=== PATIENT | male | born 1945 | race Caucasian/White ===

== ENCOUNTER 2018-10-29 07:50 | Inpatient (IN) ==
--- NOTE | 2018-10-14 15:35 | PAT Medication Instructions ---
Medication Instructions Date of Service October 14, 2018 Home Medications metoprolol succinate 1 tab PO DAILY aspirin 81 mg PO DAILY cholecalciferol (vitamin D3) 2,000 unit PO DAILY clopidogrel [Plavix] 75 mg PO DAILY gabapentin 2 cap PO TID naproxen sodium [Aleve] 220 mg PO Q8H PRN nitroglycerin 1 dose SUBLINGUAL UD PRN oxycodone 15 mg PO Q6H PRN ramipril 10 mg PO DAILY rosuvastatin 0.5 tab PO HS tamsulosin 0.4 mg PO HS Continue as directed nitroglycerin 1 dose SUBLINGUAL UD PRN (if needed) ASK your surgeon for instructions naproxen sodium [Aleve] 220 mg PO Q8H PRN ASK your prescriber and surgeon clopidogrel [Plavix] 75 mg PO DAILY DO NOT take the morning of surgery cholecalciferol (vitamin D3) 2,000 unit PO DAILY ramipril 10 mg PO DAILY Take morning of surgery With a small sip of water, OTHERWISE NOTHING TO EAT OR DRINK AFTER MIDNIGHT: metoprolol succinate 1 tab PO DAILY aspirin 81 mg PO DAILY gabapentin 2 cap PO TID oxycodone 15 mg PO Q6H PRN (okay to take up to 4 hours prior to surgery if needed) Take evening before surgery gabapentin 2 cap PO TID oxycodone 15 mg PO Q6H PRN (if needed) rosuvastatin 0.5 tab PO HS tamsulosin 0.4 mg PO HS Other Notes If you have any questions please call us at [phone] or [phone] or [phone] or [phone]
--- NOTE | 2018-10-15 14:37 | Anesthesiology Consultation ---
Date of Service October 15, 2018 Assessment & Plan (1) Encounter for pre-operative examination: Preoperative cardiology clearance 10/22/2018: "Feel patient will be intermediate risk for his surgery, not prohibitive. With a repeat relatively normal stress test in August 2018 I do not feel additional cardiovascular testing is warranted at this time. A postoperative EKG should be performed. His fluid status should be monitored carefully, avoid any volume overload." Chart Review Chart Review: Acceptable Risk for Surgery and Patient seen in Pre Admission Testing Teaching & Discussion Instructed NPO after midnight before surgery, except medications with 15 cc of water. Medication instructions provided according to the PAT guidelines. Plavix instructions per surgeon and prescriber. History Surgery Operation Date: 10/29/18 07:45 Proposed Procedures p L3-S1 Decompression and Fusion - Jaspreet Corona DO Height/Weight Height: 5 ft 6.5 in Weight: 93.5 kg Allergies Allergy/AdvReac Type Severity Reaction Status Date / Time No Known Allergies Allergy Verified 10/13/18 10:52 Medications Home Medications Medication Instructions Recorded Confirmed Last Taken metoprolol succinate 1 tab PO DAILY 08/27/18 10/13/18 Unknown aspirin 81 mg PO DAILY 10/13/18 10/13/18 Unknown cholecalciferol (vitamin D3) 2,000 unit PO DAILY 10/13/18 10/13/18 Unknown [Vitamin D3] clopidogrel [Plavix] 75 mg PO DAILY 10/13/18 10/13/18 Unknown gabapentin 2 cap PO TID 10/13/18 10/13/18 Unknown naproxen sodium [Aleve] 220 mg PO Q8H PRN 10/13/18 10/13/18 Unknown nitroglycerin 1 dose SUBLINGUAL UD PRN 10/13/18 10/13/18 Unknown oxycodone 15 mg PO Q6H PRN 10/13/18 10/13/18 Unknown ramipril 10 mg PO DAILY 10/13/18 10/13/18 Unknown rosuvastatin 0.5 tab PO HS 10/13/18 10/13/18 Unknown tamsulosin 0.4 mg PO HS 10/13/18 10/13/18 Unknown Past Medical History Medical History BPH (benign prostatic hyperplasia) (Acute) Chronic lower back pain (Acute) Fainting episodes (Acute) X2 about 1.5 years ago, spent 1 week inpatient and per patient no etiology ID'd. Heart attack (Acute) 20 YEARS AGO Hyperlipidemia (Acute) Hypertension (Acute) Lyme disease (Acute) Treated last year Neuropathy (Acute) BILATERAL FEET, RIGHT ARM Pacemaker (Acute) Initially implanted 15yrs ago for complete HB; replaced 7 yrs ago. [employer]. MOST RECENT CEHCK 07/2018. Anxiety CAD (coronary artery disease) S/P CABG 2014 Cardiomyopathy Echo 10/23/17 showed very reduced EF at 30-35%. Medication changes made, and stress echo 08/01/18 showed EF of 51%. Degenerative disc disease Depression H/O aortic valve disease S/P AVR 2014 done with CABG Hiatal hernia Osteoarthritis Past Family History Family History Mother Family history of diabetes mellitus Brother Family history of diabetes mellitus Past Surgical History Surgical History History of aortic valve replacement (Acute) [address]CTION WITH CABG AT [facility] History of cholecystectomy (Acute) History of inguinal hernia repair, bilateral (Acute) History of lumbar surgery (Acute) LUMBAR SURGERY X 2 History of umbilical hernia repair (Acute) Hx of CABG (Acute) 2013 -- X 2 VESSELS (ELLIOTT-LAD, SVG-OM) Hx of appendectomy (Acute) Fatty tumor AT CERVICAL SITE REMOVAL History of cardiac cath X 2 (LAST ONE 4 YEARS AGO) History of colonoscopy History of esophagogastroduodenoscopy (EGD) ESOPHAGEAL STRETCHING History of tooth extraction Trigger finger Past Anesthesia History No Hx of Anesthesia Complications and No Family Hx of Anesthesia Complications History of PONV No Motion Sickness Screening History of Motion Sickness: No Social History Smoking Status: Former smoker tobacco type: cigarettes Do You Dip or Chew Tobacco: No Smoking End Date: QUIT OVER 25 YEARS AGO Hx Alcohol Use: Yes Alcohol type: beer alcohol intake frequency: holidays/special occasions only Hx Substance Use: No Exercise / Class Metabolic Activity II 4-5 Yardwork/Stairs/Walk up hill (DENIES CP OR SOB WITH 1 FOS) Review of Systems Pt denies any recent chest pain, shortness of breath, palpitations, cough, fever or URI. Physical Exam Vital Signs BP: 106/65 P: 64bpm SPO2: 96% RA T: 98.4 F R: 16 ENMT Mouth: + dentures (upper) and + chipped teeth (one front upper); no dental restorations and no loose teeth Thyromental Distance: > or= 3.5 Finger Breadths (3.5) Mallampati Class: II Neck normal visual inspection; neck extension not limited Respiratory normal respiratory effort Auscultation: lungs clear to auscultation bilaterally Cardiovascular Rate/Rhythm: regular rate and regular rhythm Heart Sounds: no murmur Vessels: no carotid bruit Extremities: no edema Testing Electrocardiogram Date: 10/15/18 Findings: + NSR @ (61 with 1st degree AV block) and + LBBB Chest X-Ray Date: 10/15/18 FINDINGS: Note is made of median sternotomy wires, prosthetic cardiac valve and a dual lead right subclavian pacemaker. There are cholecystectomy clips. Lung volumes are normal. There is no pneumothorax or pleural effusion. There is borderline cardiomegaly without evidence for pulmonary edema. No consolidation is identified. IMPRESSION: No acute cardiopulmonary findings. Echocardiogram Date: 10/23/17 EF: 30-35% Compared to the prior study, there is mild change. Technically difficult due to poor acoustic windows. Poor endocardial definition of 2 or more continuous segments. Definitive enhancement agent was used to improve visualization. Left ventricle shows normal cavity size and wall thickness. Moderate to severely decreased ejection fraction of 30-35%. Unable to assess diastolic function due to RV pacing. Right ventricle cavity is mildly to moderately dilated. Grossly normal right ventricular systolic function. Pacer lead/ICD wire present in the ventricle. Normal left atrium size. Abnormal intra-atrial septum. Aneurysmal interatrial septum noted. Intra-atrial septum not well visualized. Right atrium is moderately dilated. Pacer/ICD lead is present in the right atrium. Mild tricuspid regurgitation. Mild pulmonary regurg. Pulmonary artery pressure could not be obtained. Aortic valve: There is a 22 mm Castaneda Intuity pericardial bioprosthetic valve present. There is no aortic insufficiency present. Prosthetic aortic valve function appears normal. Stress Test Date: 07/31/18 Type: nuclear Left ventricular perfusion is probably normal. However there is evidence of attenuation defect/artifact. Study quality is limited by bowel activity compromising the counts in the inferior wall. Most of it resolves with attenuation correction, suggesting artifactual in nature. There is a small sized defect of mild severity present in the apex saucedo consistent with apical thinning. Stress EKG is nondiagnostic secondary to paced rhythm. The patient reported chest discomfort during the stress test. Paradoxical septal motion. Calculated LVEF 51%. This is a low risk study. Cardiac Catheterization Date: 10/05/13 Mild systemic arterial hypertension. Normal resting right-sided pressures. Probably moderate aortic stenosis, based on pullback, nonsimultaneous AL LV pre ssure tracings. Severe three-vessel coronary artery disease. Mild to moderate left ventricular systolic dysfunction with wall motion abnormalities as above. Other Testing Pacemaker check 07/15/2018 [employer], implanted 10/08/2008 Mode: DDDR Percent pacing: RV 96% Encounter summary: Normal device function. Increased RV output from 2-2.4 to testing. 3 years battery. 1 VHR for NSVT 04/18 170 bpm for 10 beats. Follow- up in office 6 months. Laboratory Results 10/15/18 14:44 10/15/18 14:44 Blood Type A Positive 10/15/18 14:44 Antibody Screen NEGATIVE 10/15/18 14:44 PT 10.9 Seconds (9.0-12.0) 10/15/18 14:44 INR 1.1 (0.9-1.1) 10/15/18 14:44 APTT 25.8 Seconds (21.0-31.0) 10/15/18 14:44 Urine Color Yellow 10/15/18 14:44 Urine Appearance Clear (Clear) 10/15/18 14:44 Urine pH 5.0 (4.5-7.5) 10/15/18 14:44 Ur Specific [place] 1.019 (1.000-1.030) 10/15/18 14:44 Urine Protein Negative (Negative) 10/15/18 14:44 Urine Glucose (UA) Negative (Negative) 10/15/18 14:44 Urine Ketones Negative (Negative) 10/15/18 14:44 Urine Nitrite Negative (Negative) 10/15/18 14:44 Ur Leukocyte Esterase Negative (Negative) 10/15/18 14:44
[2018-10-15 15:23] LABS: Basophils # (auto) 0.03 K/uL (0-0.2); Basophils % (auto) 0.4 %; Eosinophils # (auto) 0.54 K/uL (0-0.5); Eosinophils % (auto) 7.7 %; Hematocrit (blood only) 41.2 % (42-52); Hemoglobin 13.7 g/dL (14.0-18.0); Immature Granulocytes # (auto) 0.02 K/uL (0.00-0.02); Immature Granulocytes % (auto) 0.3 %; Lymphocytes # (auto) 1.86 K/uL (1.2-3.4); Lymphocytes % (auto) 26.5 %; Mean Corpuscular Hgb Conc 33.3 g/dL (32-36); Mean Corpuscular Volume 88.8 fL (80-100); Mean Platelet Volume 9.4 fL (7.4-10.4); Monocytes # (auto) 0.86 K/uL (0.11-0.59); Monocytes % (auto) 12.3 %; Neutrophils % (auto) 52.8 %; Platelet Count 148 K/uL (130-400); RDW Coefficient of Variation 13.6 % (11.5-14.5); RDW Standard Deviation 44.2 fL (36.4-46.3); Red Blood Count 4.64 M/uL (4.7-6.1); White Blood Count 7.01 K/uL (4.8-10.8)
[2018-10-15 15:31] LABS: BUN Creatinine Ratio 15.7 (10-20); Creatinine Clr Calc Pharmacy 67.3 ml/min; Est GFR (African American) 81.6; Est GFR (Non-African American) 70.4; Potassium 4.8 mmol/L (3.5-5.1)
[2018-10-15 15:33] LABS: Appearance Urine Clear (Clear); Bilirubin Urine Negative (Negative); Blood Urine Negative (Negative); Color Urine Yellow; Glucose Urine UA Negative (Negative); Ketones Urine Negative (Negative); Leukocyte Esterase Urine Negative (Negative); Nitrite Urine Negative (Negative); Protein Urine Negative (Negative); Specific Gravity Urine 1.019 (1.000-1.030); Urobilinogen Urine Negative (Negative)
[2018-10-15 15:35] LABS: INR 1.1 (0.9-1.1); Partial Thromboplastin Time 25.8 Seconds (21.0-31.0); Prothrombin Time 10.9 Seconds (9.0-12.0)
--- NOTE | 2018-10-15 15:42 | XRay Report ---
XR chest Pre-admission PA/Lat CLINICAL HISTORY: Preoperative evaluation. COMPARISON STUDY: No previous studies for comparison. FINDINGS: Note is made of median sternotomy wires, prosthetic cardiac valve and a dual lead right sub clavian pacemaker. There are cholecystectomy clips. Lung volumes are normal. There is no pneumothorax or pleural effusion. There is borderline cardiomegaly without evidence for pulmonary edema. No conso lidation is identified. IMPRESSION: No acute cardiopulmonary findings. Electronically signed by: Marbin Pelaez M.D. 10/15/2018 3:41 PM
[~2018-10-29 07:50] MED LIST: ACETAMINOPHEN 500 MG TAB PO SCH; CEFAZOLIN 2000MG 2,000 MG/15 ML SYR IV SCH; CeleBREX 200 MG CAP PO SCH; GABAPENTIN 300 MG PO SCH; HYDROmorphone INJ 2 MG/ML SYR/VIAL ONE; LR 15ML/HR IV SCH; MIDAZOLAM HCL 1 MG/ML 2ML VIAL ONE; fentaNYL citrate 100 MCG/2 ML VIAL ONE
--- NOTE | 2018-10-29 09:41 | History & Physical Bridge Note ---
Date of Service October 29, 2018 History & Physical Bridge Note I have examined the patient, reviewed the History & Physical and in the interval since the performance of the History & Physical I have noted the following changes of clinical significance: no changes noted
--- NOTE | 2018-10-29 09:42 | History & Physical Report ---
Date of Service October 29, 2018 Assessment & Plan (1) Spinal stenosis, lumbar region with neurogenic claudication: Lumbar decompression and fusion L3-S1 Present on Admission?: Yes History of Present Illness Chief Complaint: Back and bilateral leg pain Primary Care Provider: Nany Alcantar MD This is a 73-year-old male who presents with chronic persistent back and bilateral leg pain. After failing extensive course of nonoperative care he is here for surgical intervention. Allergies Allergy/AdvReac Type Severity Reaction Status Date / Time No Known Allergies Allergy Verified 10/29/18 08:27 Home Medications Home Medications Medication Instructions Recorded Confirmed Type metoprolol succinate 1 tab PO DAILY 08/27/18 10/29/18 History aspirin 81 mg PO DAILY 10/13/18 10/29/18 History cholecalciferol (vitamin D3) 2,000 unit PO DAILY 10/13/18 10/29/18 History [Vitamin D3] clopidogrel [Plavix] 75 mg PO DAILY 10/13/18 10/29/18 History gabapentin 2 cap PO TID 10/13/18 10/29/18 History naproxen sodium [Aleve] 220 mg PO Q8H PRN 10/13/18 10/29/18 History nitroglycerin 1 dose SUBLINGUAL UD PRN 10/13/18 10/29/18 History oxycodone 15 mg PO Q6H PRN 10/13/18 10/29/18 History ramipril 10 mg PO DAILY 10/13/18 10/29/18 History rosuvastatin 0.5 tab PO HS 10/13/18 10/29/18 History tamsulosin 0.4 mg PO HS 10/13/18 10/29/18 History Past Med/Surg History Family History Mother Family history of diabetes mellitus Brother Family history of diabetes mellitus Social History Preferred Language: Slovak Communication Ability: Effective Cytopathologist Required: No Beliefs That Will Affect Care: None Current Living Situation: Spouse Other Information That Helps Us Care for You: No Feels Safe at Home: Yes Safety Concerns: Feels Safe At This Time Smoking Status: Former smoker Tobacco Type: cigarettes Do You Dip or Chew Tobacco: No Smoking End Date: QUIT OVER 25 YEARS AGO Second Hand Exposure: No Tobacco Cessation Education Requested by Patient: No Hx Alcohol Use: Yes Alcohol type: beer Hx Substance Use: No Physical Exam Vital Signs (Past 24 Hours): Last Vital Signs Temp 36.8 C 10/29/18 08:39 Pulse 72 10/29/18 08:39 Resp 20 10/29/18 08:39 BP 156/89 H 10/29/18 08:39 Pulse Ox 97 10/29/18 08:39
[2018-10-29] MEDS ORDERED: HYDROmorphone INJ 2 MG/ML SYR/VIAL ONE ×2 (10:13→13:04)
[2018-10-29] MEDS ORDERED: PROPOFOL IV EMULSION 10 MG/ML 100 ML VIAL IV ONE (10:13)
[2018-10-29] MEDS ORDERED: BACITRACIN INJ 50,000 UNIT VIAL ONE (10:16)
[2018-10-29] MEDS ORDERED: BUPIVACAINE/EPINEPHRINE 0.5% MPF 1:200,000 30 ML VIAL ONE (10:16)
[2018-10-29] MEDS ORDERED: LABETALOL HCL IV 5 MG/ML 20ML IV PRN (10:21)
[2018-10-29] MEDS ORDERED: ONDANSETRON INJ 2 MG/ML 2 ML VIAL IV PRN ×2 (10:21→15:37)
[2018-10-29] MEDS ORDERED: ATROPINE SULFATE 0.1 MG/ML 10ML SYR IV PRN (10:21)
[2018-10-29] MEDS ORDERED: fentaNYL citrate 100 MCG/2 ML VIAL ONE ×3 (10:38→12:21)
[2018-10-29] MEDS ORDERED: PROPOFOL IV EMULSION 10 MG/ML 20 ML VIAL IV ONE (11:04)
[2018-10-29] MEDS ORDERED: LIDOCAINE HCL 2% 2 ML VIAL/AMP(20MG/ML) INFIL ONE (11:04)
[2018-10-29] MEDS ORDERED: ROCURONIUM BROMIDE 10 MG/ML 5 ML VIAL ONE (11:04)
[2018-10-29] MEDS ORDERED: NEOSTIGMINE METHYLSULFATE 1 MG/ML 10ML VIAL ONE (11:04)
[2018-10-29] MEDS ORDERED: GLYCOPYRROLATE 0.2 MG/ML VIAL ONE (11:04)
[2018-10-29] MEDS ORDERED: DEXAMETHASONE SOD INJ 4 MG/ML VIAL ONE (11:04)
[2018-10-29] MEDS ORDERED: ONDANSETRON INJ 2 MG/ML 2 ML VIAL ONE ×2 (11:04→13:07)
[2018-10-29] MEDS ORDERED: FLOSEAL HEMOSTATIC MATRIX 10ML TOP ONE ×3 (11:16→11:20)
[2018-10-29] MEDS ORDERED: ALBUMIN HUMAN 5% 12.5 GM/250 ML VIAL IV ONE (12:14)
--- NOTE | 2018-10-29 13:01 | Operative Report ---
Post Operative Report Pre & Post Diagnosis Operation Date: 10/29/18 09:35 Pre-Op Diagnosis: Spinal stenosis, lumbar region with neurogenic claudication L3-S1 Post-Op Diagnosis: Spinal stenosis, lumbar region with neurogenic claudication L3-S1 Procedure Operation Date: 10/29/18 09:35 Actual Procedures #1 lumbar decompression medial facetectomies foraminotomies L2-3 L3-4 L4-5. #2 posterior spinal fusion L3-4 L4-5 L5-S1. #3 please posterior segmental instrumentation using globus L3-4 L4-5 L5-S1. #4 interbody fusion L4-5 per #5 placement of peek cage 11 x 26 mm L4-5. #6 placement of local autograft in the posterior lateral gutters per #7 placement Feese collagen sponge, master graft in the posterior lateral gutters and ostial amp in the interbody space. Surgeon Jaspreet Corona, Acquisition Marketing Coordinator Monserrat Moreno Estimated Blood Loss 575 Findings See Below Patient is 5 foot 6 and 97 kg with a BMI of 33. Patient's body habitus and excessive weight that had significant technical difficulty to the procedure requiring extended Kerrisons and retractors. This added at least an increase of 50% of time to the procedure not normally anticipated. Specimens None Indications This is a 73-year-old male who presents with significant multilevel spinal stenosis. Failing extensive course of nonoperative care he like to undergo the above-mentioned procedure. Description of Procedure Patient was met with preoperatively case discussed all questions addressed. The patient was taken back to the operative suite underwent intubation and placed in a prone position on the Hill table on top of the Dylan frame. All bony prominences were well-padded eyes inspected to ensure no external pressure placed upon but this point the lumbar spine was prepped and draped in normal sterile fashion. Sharp dissection with the assistance of Bovie cautery was performed down to and exposing the lamina and transverse processes of L3-L4-L5 and sacral ala bilaterally. From a calcified fashion complete laminectomy of L4 L3 and partial laminectomy of L2 was performed including bilateral medial facetectomies and foraminotomies addressing severe stenosis. Pedicle screws were then placed in L3-L4-L5 and S1 levels bilaterally with assistance of fluoroscopy. Intraoperative neuro monitoring was utilized throughout the procedure and screws were tested and determined to be an appropriate placement. Spinal cord monitoring was normal throughout the entire procedure. Proper sized rods were then placed bilaterally and believe transforaminal approach and left complete discectomy until 4 5 was performed and provides curetted to subcortical bleeding bone and a 11 x 26 mm peek cage filled with osteo-amp bone graft tapped in position. Of note we also used approximate 10 cc of bone marrow aspirate taken by way of a transpedicular protein in the interbody graft and posterior gutters. Rods were then compressed locked in final position bilaterally. The transverse processes of L3-L4-L5 and sacral ala bur to subcortical bleeding bone. Infuse collagen sponge mass graft local autograft placed in the posterior lateral gutters. 15 round FLAVIO drain inserted. The incision was then closed with 1 Vicryl in the fascia 2-0 Vicryl subcutaneously and 4 Monocryl for final skin closure. Steri-Strip sterile dressings placed. Patient will continue to PACU stable condition. Please note Monserrat Moreno present at the entire procedure involved in patient positioning complex portions and final skin closure. I attest to the content of the Intraoperative Record and any orders documented therein. Any exceptions are noted below.
[2018-10-29] MEDS ORDERED: METOCLOPRAMIDE HCL INJ 5 MG/ML 2 ML VIAL ONE ×2 (13:07→13:08)
[2018-10-29] MEDS ORDERED: PHENYLEPHRINE 100MCG/ML 5ML SYR ONE (13:08)
[2018-10-29] MEDS ORDERED: ePHEDrine sulfate 50 MG/ML SYR ONE (13:08)
[2018-10-29] MEDS ORDERED: KETOROLAC 30 MG/ML VIAL ONE (13:08)
[2018-10-29] MEDS: HYDROmorphone INJ 1 MG/ML SYRINGE IV PRN ×9 (13:46→14:40)
--- NOTE | 2018-10-29 13:47 | Fluoroscopy Report ---
FL lumbar spine 2-3V CLINICAL HISTORY: L3-S1 DECOMPRESSION AND FUSION COMPARISON STUDY: CT lumbar myelogram August 27, 2018. FLUOROSCOPY TIME: 25 seconds. FLUOROSCOPIC IMAGES: 2. FINDINGS: These images demonstrate L3-S1 bilateral pedicle screw fusion with posterior decompression. There is a discectomy with interbody spacer placement at the L4-L5 level. Hardware is intact. IMPRESSION: Fluoroscopic images demonstrating L4-L5 discectomy and L3-S1 bilateral pedicle screw fus ion with posterior decompression. Electronically signed by: Marbin Pelaez M.D. 10/29/2018 1:46 PM
--- NOTE | 2018-10-29 14:33 | Anesthesiology Progress Note ---
Date of Service October 29, 2018 Anesthesia Post Procedure Vital Signs Vital Signs: Temp Pulse Pulse Resp BP Pulse Ox 10/29/18 13:21 36.6 C 83 16 183/90 H 97 10/29/18 08:39 36.8 C 72 20 156/89 H 97 Pain Intensity Lower Back: Pain Intensity: 8 Transfer of Care Handoff Completed per policy Notes Mental Status: alert / awake / arousable Patient Amnestic to Procedure: Yes Nausea / Vomiting: adequately controlled Pain: adequately controlled Airway Patency, RR, SpO2: stable & adequate BP & HR: stable & adequate Hydration State: stable & adequate Anesthetic Complications: no major complications apparent
[2018-10-29] MEDS ORDERED: HYDROmorphone INJ 0.5 MG/0.5 ML SYR IV STA (15:36)
[2018-10-29] MEDS ORDERED: METOCLOPRAMIDE HCL INJ 5 MG/ML 2 ML VIAL IV PRN (15:37)
[2018-10-29] MEDS ORDERED: ACETAMINOPHEN 500 MG TAB PO PRN (15:37)
[2018-10-29] MEDS ORDERED: ACETAMINOPHEN 1,000 MG/100 ML VIAL IV PRN (15:37)
[2018-10-29] MEDS ORDERED: ONDANSETRON 4 MG TAB PO PRN (15:37)
[2018-10-29] MEDS ORDERED: NITROGLYCERIN SL 0.4 MG/TAB TAB SL PRN (15:37)
[2018-10-29] MEDS ORDERED: PROMETHAZINE HCL 12.5 MG in SODIUM CHLORIDE 0.9% 50 ML IV PRN (15:37)
[2018-10-29] MEDS ORDERED: DO NOT ADMINISTER FLU VACCINE PRN (15:37)
[2018-10-29] MEDS ORDERED: ALUMINUM/MAGNESIUM SUSP 30 ML UDC PO PRN (15:37)
[2018-10-29] MEDS ORDERED: BISACODYL 10 MG SUPP PR PRN (15:37)
[2018-10-29] MEDS ORDERED: DO NOT ADMINISTER PNEUMOCOCCAL VACCINE PRN (15:37)
[2018-10-29] MEDS ORDERED: FAMOTIDINE 20 MG TAB PO PRN (15:37)
[2018-10-29] MEDS ORDERED: SOD PHOSPHATE/SOD BIPHOSPHATE ENEMA 132 ML BTL PR PRN (15:37)
[2018-10-29] MEDS ORDERED: LORazepam 0.5 MG/1 ML VIAL IV PRN (15:37)
[2018-10-29] MEDS: HYDROmorphone INJ 0.5 MG/0.5 ML SYR IV PRN ×2 (16:46→22:57)
[2018-10-29] MEDS: CEFAZOLIN 2000MG 2,000 MG/15 ML SYR IV SCH (16:47)
[2018-10-29] MEDS: LACTATED RINGER'S 1,000 ML IV SCH ×2 (16:52→22:41)
--- NOTE | 2018-10-29 17:07 | Hospitalist Consultation ---
Date of Consultation October 29, 2018 Assessment & Plan (1) Spinal stenosis, lumbar region with neurogenic claudication: - POD#0 L3-S1 decompression fusion by Dr. Corona - activity and wound care orders as per ortho - pain control with bowel regimen - PT/OT - monitor H/H for acute blood loss anemia and transfuse blood products PRN - EBL 575 cc (2) CAD (coronary artery disease): -History of CABG x2 2013 -Received preoperative cardiac clearance -Stable, no reports of chest pain -Continue aspirin, statin, beta-padmini, ED inhibitor (3) HTN (hypertension): -BP controlled, continue metoprolol and ED inhibitor (4) Ischemic cardiomyopathy: -Echo 10/23/17 showed educed EF at 30-35%; stress echo 08/01/18 showed EF of 51% -Appears euvolemic, does not require routine diuretics (5) Pacemaker: (6) Complete heart block: -No acute issues (7) DVT prophylaxis: -Teds/SCDs as per spine orthopedics Thank you for this consultation. We will follow the patient with you during their hospital stay. You can reach a member of the [facility] 21/01 via pager @ [phone]. Supervising Physician Co-Signing Physician Notes Patient is a 73-year-old male with history of coronary artery disease status post CABG, ischemic cardiomyopathy and other medical problems who underwent lumbar decompression and fusion by Dr. Corona was seen and examined postop. Postoperatively he complains of low back pain with movement, radiates down both legs, associated with some numbness and tingling in feet. Denies any chest pain, shortness of breath, dizziness, nausea, abdominal pain. On exam patient is moderately built and nourished, normocephalic atraumatic, lungs are clear to auscultation, S1-S2, no murmur, pacemaker on the right side of the chest, abdomen soft nontender, back--surgical site in dressing. No pedal edema, grossly no focal neurological deficits. Spinal stenosis status post lumbar decompression fusion POD#0 Monitor for postop anemia Transfuse PRBC as needed Bowel regimen to prevent constipation Activity, DVT prophylaxis, pain control as per primary team PT OT Coronary artery disease Continue home medications including aspirin, statin, beta-padmini, ED I personally reviewed the record. Patient is interviewed and examined at bedside. Patient's care is coordinated with Jackelyn Cho BURR GRINDER. Please refer to the documentation above for details of patient's presentation and for discussion of other issues. History of Present Illness Reason for Consultation: Postop medical management Requesting Physician: Dr. Corona Attending Physician: Dr. Stevens History of Present Illness 73-year-old male who is status post lumbar decompression fusion L3-S1 today by Dr. Corona. Postoperatively the patient is doing well. He reports he is having low back pain with radiation to both legs however this was present prior to surgery and is currently improved. He also has some mild tingling to the bilateral lower extremities which was present preoperatively as well. He denies chest pain shortness of breath. No lightheadedness or dizziness. He denies nausea and abdominal pain. Booth catheter is in place draining clear yellow urine. Allergies Allergy/AdvReac Type Severity Reaction Status Date / Time No Known Allergies Allergy Verified 10/29/18 08:27 Home Medications Home Medications Medication Instructions Recorded Confirmed Type metoprolol succinate 1 tab PO DAILY 08/27/18 10/29/18 History aspirin 81 mg PO DAILY 10/13/18 10/29/18 History cholecalciferol (vitamin D3) 2,000 unit PO DAILY 10/13/18 10/29/18 History [Vitamin D3] gabapentin 2 cap PO TID 10/13/18 10/29/18 History naproxen sodium [Aleve] 220 mg PO Q8H PRN 10/13/18 10/29/18 History nitroglycerin 1 dose SUBLINGUAL UD PRN 10/13/18 10/29/18 History oxycodone 15 mg PO Q6H PRN 10/13/18 10/29/18 History ramipril 10 mg PO DAILY 10/13/18 10/29/18 History rosuvastatin 0.5 tab PO HS 10/13/18 10/29/18 History tamsulosin 0.4 mg PO HS 10/13/18 10/29/18 History Patient History Medical History Depression (Chronic) Pacemaker (Chronic) Complete heart block (Chronic) LBBB (left bundle branch block) (Chronic) BPH (benign prostatic hyperplasia) (Chronic) Ischemic cardiomyopathy (Chronic) Echo 10/23/17 showed very reduced EF at 30-35%. Medication changes made, and stress echo 08/01/18 showed EF of 51%. HTN (hypertension) (Chronic) CAD (coronary artery disease) (Chronic) Surgical History H/O umbilical hernia repair (Chronic) S/P trigger finger release (Chronic) H/O inguinal hernia repair (Chronic) History of back surgery (Chronic) Hx of cholecystectomy (Chronic) History of appendectomy (Chronic) History of aortic valve replacement with bioprosthetic valve (Chronic) S/P CABG x 2 (Chronic) 2013 Family History Mother Family history of diabetes mellitus Brother Family history of diabetes mellitus Social History Preferred Language: Tristanian Communication Ability: Effective [employer] Member Required: No Beliefs That Will Affect Care: None Current Living Situation: Spouse Other Information That Helps Us Care for You: No Feels Safe at Home: Yes Safety Concerns: Feels Safe At This Time Smoking Status: Former smoker Tobacco Type: cigarettes Do You Dip or Chew Tobacco: No Smoking End Date: QUIT OVER 25 YEARS AGO Second Hand Exposure: No Tobacco Cessation Education Requested by Patient: No Hx Alcohol Use: Yes Alcohol type: beer Hx Substance Use: No Review of Systems Review of Systems: ROS per HPI, all other systems reviewed and negative Physical Exam Constitutional: WD/WN, vitals as above Eyes: PERRL, conjunctivae normal, anicteric sclerae ENMT: Ears: no external ear abnormality Nose: no external nose abnormality Mouth: + dry oral mucous membranes Respiratory: normal respiratory effort, lungs clear to auscultation Cardiovascular: Rate/Rhythm: regular rate and regular rhythm Vessels: normal peripheral pulses Extremities: no edema Chest (Breasts): Chest: + pacemaker (Right chest) Gastrointestinal (Abdomen): normal bowel sounds, soft, nontender, no hepatosplenomegaly Musculoskeletal: no cyanosis or clubbing, extremities motor strength 5/5 S/P back surgery, pedal pushes and pulls strong bilaterally, drain in place draining bloody drainage Skin: no rashes, warm and dry Neurologic: PERRL, EOMI, accommodation nl, no face palsy, no dysarthria Psychiatric: A+Ox3, euthymic affect Results & Data Vital Signs (Past 12 Hours) Vital Signs Temp Pulse Pulse Pulse Resp BP BP 10/29/18 16:21 36.1 C L 69 18 147/73 H 10/29/18 15:48 36.4 C L 66 18 10/29/18 15:20 36.6 C 72 16 10/29/18 15:06 81 18 133/58 L 10/29/18 15:05 70 14 10/29/18 15:01 73 15 129/54 L 10/29/18 15:00 84 24 10/29/18 14:56 67 13 130/52 L 10/29/18 14:55 73 13 10/29/18 14:51 78 15 129/56 L 10/29/18 14:50 71 14 10/29/18 14:46 67 14 138/53 L 10/29/18 14:45 68 14 10/29/18 14:41 75 15 137/60 10/29/18 14:40 77 16 10/29/18 14:36 69 14 135/58 L 10/29/18 14:35 68 14 10/29/18 14:31 79 16 134/58 L 10/29/18 14:30 76 17 10/29/18 14:26 78 17 131/50 L 10/29/18 14:25 72 15 10/29/18 14:21 78 16 142/73 H 10/29/18 14:20 80 16 10/29/18 14:16 74 16 171/91 H 10/29/18 14:15 76 15 10/29/18 14:13 75 17 173/102 H 10/29/18 14:11 70 21 163/115 H 10/29/18 14:10 78 16 10/29/18 14:06 64 14 162/65 H 10/29/18 14:05 67 20 10/29/18 14:01 69 14 159/71 H 10/29/18 14:00 72 14 10/29/18 13:56 76 18 160/112 H 10/29/18 13:55 71 15 10/29/18 13:51 78 15 164/83 H 10/29/18 13:50 72 17 10/29/18 13:46 73 14 173/82 H 10/29/18 13:45 78 12 10/29/18 13:41 84 15 182/89 H 10/29/18 13:40 80 17 10/29/18 13:36 79 14 191/80 H 10/29/18 13:35 80 17 10/29/18 13:32 83 18 180/83 H 10/29/18 13:31 83 21 183/83 H 10/29/18 13:30 85 18 10/29/18 13:26 84 15 165/79 H 10/29/18 13:25 83 12 10/29/18 13:22 83 14 183/90 H 10/29/18 13:21 36.6 C 83 83 12 10/29/18 08:39 36.8 C 72 20 BP Pulse Ox 10/29/18 16:21 94 10/29/18 15:48 147/70 H 93 10/29/18 15:20 155/73 H 95 10/29/18 15:06 94 10/29/18 15:05 10/29/18 15:01 95 10/29/18 15:00 93 10/29/18 14:56 94 10/29/18 14:55 93 10/29/18 14:51 94 10/29/18 14:50 10/29/18 14:46 93 10/29/18 14:45 94 10/29/18 14:41 95 10/29/18 14:40 93 10/29/18 14:36 94 10/29/18 14:35 10/29/18 14:31 95 10/29/18 14:30 10/29/18 14:26 95 10/29/18 14:25 92 10/29/18 14:21 97 10/29/18 14:20 96 10/29/18 14:16 95 10/29/18 14:15 96 10/29/18 14:13 94 10/29/18 14:11 96 10/29/18 14:10 97 10/29/18 14:06 97 10/29/18 14:05 97 10/29/18 14:01 97 10/29/18 14:00 97 10/29/18 13:56 97 10/29/18 13:55 96 10/29/18 13:51 96 10/29/18 13:50 97 10/29/18 13:46 98 10/29/18 13:45 98 10/29/18 13:41 99 10/29/18 13:40 99 05/01/19 13:36 98 10/29/18 13:35 98 10/29/18 13:32 97 10/29/18 13:31 98 10/29/18 13:30 98 10/29/18 13:26 97 10/29/18 13:25 97 10/29/18 13:22 97 10/29/18 13:21 183/90 H 98 10/29/18 08:39 156/89 H 97
[2018-10-29] MEDS: GABAPENTIN 400 MG CAP PO SCH ×2 (18:17→21:33)
[2018-10-29] MEDS: METOPROLOL SUCC 50MG EXT REL TAB PO SCH (18:18)
[2018-10-29] MEDS: OXYCODONE HCL IR 5 MG TAB (IMMEDIATE RELEASE) PO PRN ×2 (18:25→21:36)
[2018-10-29] MEDS ORDERED: DOCUSATE SODIUM/SENNA 50/8.6MG TAB PO SCH (21:00)
[2018-10-29] MEDS: TAMSULOSIN HCL 0.4 MG CAP PO SCH (21:34)
[2018-10-29] MEDS: ROSUVASTATIN CALCIUM 5 MG TAB PO SCH (21:34)
[2018-10-30] MEDS: CEFAZOLIN 2000MG 2,000 MG/15 ML SYR IV SCH (01:33)
[2018-10-30] MEDS: OXYCODONE HCL IR 5 MG TAB (IMMEDIATE RELEASE) PO PRN ×3 (01:39→16:41)
[2018-10-30] MEDS: POLYETHYLENE (MIRALAX) 17 GM PACK PO SCH ×4 (05:10→23:22)
[2018-10-30] MEDS: TRAMADOL HCL 50 MG TABLET PO PRN ×3 (05:10→17:28)
[2018-10-30] MEDS: LACTATED RINGER'S 1,000 ML IV SCH (05:54)
[2018-10-30 07:15] LABS: Basophils # (auto) 0.01 K/uL (0-0.2); Basophils % (auto) 0.1 %; Hematocrit (blood only) 34.7 % (42-52); Hemoglobin 11.8 g/dL (14.0-18.0); Immature Granulocytes # (auto) 0.04 K/uL (0.00-0.02); Immature Granulocytes % (auto) 0.3 %; Lymphocytes # (auto) 1.24 K/uL (1.2-3.4); Lymphocytes % (auto) 8.3 %; Mean Corpuscular Volume 86.5 fL (80-100); Mean Platelet Volume 9.1 fL (7.4-10.4); Monocytes # (auto) 1.85 K/uL (0.11-0.59); Monocytes % (auto) 12.4 %; Neutrophils # (auto) 11.82 K/uL (1.4-6.5); Neutrophils % (auto) 78.9 %; Platelet Count 163 K/uL (130-400); RDW Coefficient of Variation 13.9 % (11.5-14.5); Red Blood Count 4.01 M/uL (4.7-6.1); White Blood Count 14.96 K/uL (4.8-10.8)
[2018-10-30 07:56] LABS: BUN Creatinine Ratio 13.3 (10-20); Calcium 9.2 mg/dl (8.5-10.1); Creatinine Clr Calc Pharmacy 57.6 ml/min; Est GFR (African American) 68.6; Est GFR (Non-African American) 59.2; Potassium 4.3 mmol/L (3.5-5.1)
[2018-10-30] MEDS: LORazepam 0.5 MG TAB PO PRN (08:20)
[2018-10-30] MEDS: ASPIRIN 81 MG ECTAB PO SCH (08:21)
[2018-10-30] MEDS: GABAPENTIN 400 MG CAP PO SCH ×3 (08:21→21:00)
[2018-10-30] MEDS: PANTOprazole 40 MG TAB PO SCH (08:22)
--- NOTE | 2018-10-30 08:30 | Hospitalist Progress Note ---
Date of Service October 30, 2018 Assessment & Plan (1) Spinal stenosis, lumbar region with neurogenic claudication: Pre-op diagnosis of Spinal stenosis, lumbar region with neurogenic claudication L3-S1 Operation Date: 10/29/18 for Lumber spin surgery for decompression of spinal cord (#1 lumbar decompression medial facetectomies foraminotomies L2-3 L3-4 L4-5. #2 posterior spinal fusion L3-4 L4-5 L5-S1. #3 please posterior segmental instrumentation using globus L3-4 L4-5 L5-S1. #4 interbody fusion L4-5 per #5 placement of peek cage 11 x 26 mm L4-5. #6 placement of local autograft in the posterior lateral gutters per #7 placement Feese collagen sponge, master graft in the posterior lateral gutters and ostial amp in the interbody space) Acute blood loss anemia -pre-op Hgb is 13.7 in September 2018 - Estimated Blood Loss 575 cc in the operating room on 10/29/18 - FLAVIO drain draining serosanguinous fluid - Hgb on 11.8 on 10/30/18 - No indication for blood transfusion at this time - management of FLAVIO drain as per orthopedics (2) CAD (coronary artery disease): -History of CABG x2 2013 -Received preoperative cardiac clearance -Stable, no reports of chest pain -Continue aspirin, statin, beta-padmini -hold ED inhibitor until blood pressure improves (3) HTN (hypertension): History of hypertension -takes rampril 10 mg daily at home with metoprolol -blood pressure currently is low normotensive -continue metoprolol -hold ED inhibitor (4) Ischemic cardiomyopathy: -Echo 10/23/17 showed educed EF at 30-35%; stress echo 08/01/18 showed EF of 51% -Appears euvolemic, does not require routine diuretics (5) Pacemaker: presence of pacemaker (6) Complete heart block: history of complete heart block; has pacemaker no acute issues at this time (7) DVT prophylaxis: -Teds/SCDs as per spine orthopedics Subjective Patient seen and examined this AM. He was walking with walker with nurse with reta. Presence of FLAVIO drain to the back draining blood. Patient denies acute pain. denies lightheadedness. denies shortness of breath. no chest pain. no abdominal pain. no acute back pain. Physical Exam Constitutional: WD/WN, vitals as above Eyes: PERRL, conjunctivae normal, anicteric sclerae EOM intact bilaterally ENMT: external ear and nose normal, oropharynx normal Neck: trachea midline, no thyromegaly Respiratory: normal respiratory effort, lungs clear to auscultation Cardiovascular: Rate/Rhythm: regular rate and regular rhythm Gastrointestinal (Abdomen): normal bowel sounds, soft, nontender, no hepatosplenomegaly Musculoskeletal: no cyanosis or clubbing, extremities motor strength 5/5 Head/Neck/Chest: normocephalic and head atraumatic FLAVIO drain to the back draining blood Neurologic: PERRL, EOMI, accommodation nl, no face palsy, no dysarthria CN's II-XI intact bilaterally Psychiatric: A+Ox3, euthymic affect Genitourinary: + penis abnormality (mcduffie) Results & Data Vital Signs (Past 12 Hours) Vital Signs Temp Pulse Resp BP Pulse Ox 10/30/18 02:43 36.8 C 68 16 103/57 L 94 10/29/18 23:01 36.5 C 72 18 129/68 93
--- NOTE | 2018-10-30 08:57 | Orthopedic Progress Note ---
Date of Service October 30, 2018 Assessment & Plan (1) Spinal stenosis, lumbar region with neurogenic claudication: This time we will continue physical therapy monitor his FLAVIO output anticipate discharge home this weekend. Present on Admission?: Yes Subjective Patient's back pain is controlled. He does have a history of narcotic utilization so he is at baseline pain. He is however comfortable. He notes improvement in his legs. Physical Exam Physical Exam: On exam he is sitting up at the bedside. Is good strength testing. He is in breakfast. Results & Data Vital Signs (Past 12 Hours) Vital Signs Temp Pulse Resp BP BP Pulse Ox 10/30/18 07:05 36.8 C 72 18 128/71 97 10/30/18 02:43 36.8 C 68 16 103/57 L 94 10/29/18 23:01 36.5 C 72 18 129/68 93
[2018-10-30] MEDS ORDERED: ENALAPRIL MALEATE 10 MG TAB PO SCH (09:00)
[2018-10-30] MEDS: DOCUSATE SODIUM 100 MG CAP PO SCH ×2 (10:35→21:00)
[2018-10-30] MEDS: SENNA 8.6 MG TAB PO SCH (10:35)
[2018-10-30] MEDS ORDERED: KETOROLAC TROMETHAMINE 15 MG/ML VIAL IV ONE (18:51)
[2018-10-30] MEDS ORDERED: KETOROLAC TROMETHAMINE 15 MG/ML VIAL ONE (20:57)
[2018-10-30] MEDS: TAMSULOSIN HCL 0.4 MG CAP PO SCH (21:00)
[2018-10-30] MEDS: ROSUVASTATIN CALCIUM 5 MG TAB PO SCH (21:01)
[2018-10-31 05:31] LABS: Basophils # (auto) 0.02 K/uL (0-0.2); Basophils % (auto) 0.2 %; Eosinophils # (auto) 0.22 K/uL (0-0.5); Eosinophils % (auto) 1.9 %; Hemoglobin 10.7 g/dL (14.0-18.0); Immature Granulocytes # (auto) 0.04 K/uL (0.00-0.02); Immature Granulocytes % (auto) 0.3 %; Lymphocytes # (auto) 1.82 K/uL (1.2-3.4); Lymphocytes % (auto) 15.5 %; Mean Corpuscular Hgb Conc 33.4 g/dL (32-36); Mean Corpuscular Volume 87.7 fL (80-100); Mean Platelet Volume 8.8 fL (7.4-10.4); Monocytes # (auto) 1.98 K/uL (0.11-0.59); Monocytes % (auto) 16.8 %; Neutrophils # (auto) 7.69 K/uL (1.4-6.5); Neutrophils % (auto) 65.3 %; Platelet Count 130 K/uL (130-400); RDW Coefficient of Variation 14.3 % (11.5-14.5); RDW Standard Deviation 46.4 fL (36.4-46.3); Red Blood Count 3.65 M/uL (4.7-6.1); White Blood Count 11.77 K/uL (4.8-10.8)
[2018-10-31] MEDS: POLYETHYLENE (MIRALAX) 17 GM PACK PO SCH ×2 (05:47→09:55)
[2018-10-31 06:02] LABS: Albumin Level 3.3 gm/dl (3.4-5.0); BUN Creatinine Ratio 20.2 (10-20); Calcium 8.5 mg/dl (8.5-10.1); Creatinine Clr Calc Pharmacy 56.6 ml/min; Est GFR (African American) 67.3; Potassium 4.3 mmol/L (3.5-5.1)
[2018-10-31 06:04] LABS: Albumin Globulin Ratio 1.1 (0.9-2); Bilirubin,Total 0.7 mg/dl (0.2-1); Globulin 3.1 gm/dl (2.5-4.0); Total Protein 6.4 gm/dl (6.4-8.2)
[2018-10-31] MEDS: OXYCODONE HCL IR 5 MG TAB (IMMEDIATE RELEASE) PO PRN (07:08)
[2018-10-31] MEDS: GABAPENTIN 400 MG CAP PO SCH ×3 (07:09→21:45)
[2018-10-31] MEDS: PANTOprazole 40 MG TAB PO SCH (07:09)
[2018-10-31] MEDS: METOPROLOL SUCC 50MG EXT REL TAB PO SCH (07:09)
[2018-10-31] MEDS: DOCUSATE SODIUM 100 MG CAP PO SCH ×2 (07:10→21:46)
[2018-10-31] MEDS: ASPIRIN 81 MG ECTAB PO SCH (07:10)
[2018-10-31] MEDS: LORazepam 0.5 MG TAB PO PRN (08:21)
[2018-10-31] MEDS: SENNA 8.6 MG TAB PO SCH (08:21)
--- NOTE | 2018-10-31 09:20 | Hospitalist Progress Note ---
Date of Service October 31, 2018 Assessment & Plan (1) Spinal stenosis, lumbar region with neurogenic claudication: Pre-op diagnosis of Spinal stenosis, lumbar region with neurogenic claudication L3-S1 Operation Date: 10/29/18 for Lumber spin surgery for decompression of spinal cord (#1 lumbar decompression medial facetectomies foraminotomies L2-3 L3-4 L4-5. #2 posterior spinal fusion L3-4 L4-5 L5-S1. #3 please posterior segmental instrumentation using globus L3-4 L4-5 L5-S1. #4 interbody fusion L4-5 per #5 placement of peek cage 11 x 26 mm L4-5. #6 placement of local autograft in the posterior lateral gutters per #7 placement Feese collagen sponge, master graft in the posterior lateral gutters and ostial amp in the interbody space) -on pain medications -increase bowel regimen to include daily Miralax at least until first bowel movement after the surgery Acute blood loss anemia -pre-op Hgb is 13.7 in September 2018 - Estimated Blood Loss 575 cc in the operating room on 10/29/18 - FLAVIO drain draining serosanguinous fluid - Hgb on 11.8 on 10/30/18; Hgb 10.7 on 10/31/18 - No indication for blood transfusion at this time - management of FLAVIO drain as per orthopedics (2) CAD (coronary artery disease): -History of CABG x2 2013 -Received preoperative cardiac clearance -Stable, no reports of chest pain -Continue aspirin, statin, beta-padmini -continue to hold ED inhibitor until blood pressure improves (3) HTN (hypertension): History of hypertension -takes rampril 10 mg daily at home with metoprolol -blood pressure currently is controlled without ED inhibitor -continue metoprolol -hold ED inhibitor (4) Ischemic cardiomyopathy: -Echo 10/23/17 showed educed EF at 30-35%; stress echo 08/01/18 showed EF of 51% -Appears euvolemic, does not require routine diuretics (5) Pacemaker: presence of pacemaker (6) Complete heart block: history of complete heart block; has pacemaker no acute issues at this time (7) DVT prophylaxis: -Teds/SCDs as per spine orthopedics Subjective Patient seen and examined sitting at the bedside. Patient reports Kpad to the back did not help with pain control. Denies bowel movement since the surgery. Continues to have FLAVIO drain to the back. no vomiting. no abdominal pain. no chest pain. no shortness of breath. denies problems with urination Physical Exam Constitutional: WD/WN, vitals as above Eyes: PERRL, conjunctivae normal, anicteric sclerae EOM intact bilaterally ENMT: external ear and nose normal, oropharynx normal Neck: trachea midline, no thyromegaly Respiratory: normal respiratory effort, lungs clear to auscultation Cardiovascular: Rate/Rhythm: regular rate and regular rhythm Gastrointestinal (Abdomen): normal bowel sounds, soft, nontender, no hepatosplenomegaly Musculoskeletal: no cyanosis or clubbing, extremities motor strength 5/5 Head/Neck/Chest: normocephalic and head atraumatic FLAVIO drain to back draining serosanguinous fluid Neurologic: PERRL, EOMI, accommodation nl, no face palsy, no dysarthria CN's II-XI intact bilaterally Psychiatric: A+Ox3, euthymic affect Genitourinary: + penis abnormality (mcduffie) Results & Data Vital Signs (Past 12 Hours) Vital Signs Temp Pulse Pulse Resp BP Pulse Ox 10/31/18 08:00 36.7 C 83 16 130/74 94 10/30/18 23:01 37.4 C 10/30/18 23:00 38.2 C H 94 H 16 108/66 91
[2018-10-31] MEDS ORDERED: POLYETHYLENE (MIRALAX) 17 GM PACK PO PRN (09:22)
[2018-10-31] MEDS: HYDROmorphone INJ 0.5 MG/0.5 ML SYR IV PRN (15:55)
--- NOTE | 2018-10-31 16:24 | Orthopedic Progress Note ---
Date of Service October 31, 2018 Assessment & Plan (1) Spinal stenosis, lumbar region with neurogenic claudication: This time we will continue physical therapy monitor his FLAVIO output anticipate discharge home tomorrow. Present on Admission?: Yes Subjective Patient complaining mostly of back pain. Physical Exam Physical Exam: Patient is ambulate in halls with a walker. Is good strength testing. Results & Data Vital Signs (Past 12 Hours) Vital Signs Temp Pulse Pulse Resp BP BP Pulse Ox 10/31/18 15:42 37.8 C H 91 H 18 113/70 100 10/31/18 12:00 36.9 C 82 18 118/80 92 10/31/18 08:00 36.7 C 83 16 130/74 94
[2018-10-31] MEDS: TRAMADOL HCL 50 MG TABLET PO PRN (17:03)
[2018-10-31] MEDS ORDERED: ACETAMINOPHEN 325 MG TAB PO PRN (17:16)
[2018-10-31] MEDS ORDERED: PIPERACILL/TAZOBAC CONSULT ACTIVE PRN (17:18)
[2018-10-31] MEDS ORDERED: ACETAMINOPHEN 325 MG TAB ONE (17:24)
[2018-10-31] MEDS ORDERED: PIPERACILLIN/TAZOBACTAM 3.375 GM in DEXTROSE 5% 100 ML IV ONE (17:45)
[2018-10-31] MEDS: PIPERACILLIN/TAZOBACTAM 3.375 GM in DEXTROSE 5% 100 ML IV SCH (21:41)
[2018-10-31] MEDS: ROSUVASTATIN CALCIUM 5 MG TAB PO SCH (21:45)
[2018-10-31] MEDS: TAMSULOSIN HCL 0.4 MG CAP PO SCH (21:46)
[2018-11-01] MEDS: OXYCODONE HCL IR 5 MG TAB (IMMEDIATE RELEASE) PO PRN ×3 (00:03→14:14)
[2018-11-01] MEDS: PIPERACILLIN/TAZOBACTAM 3.375 GM in DEXTROSE 5% 100 ML IV SCH ×3 (05:57→22:18)
[2018-11-01 06:48] LABS: Basophils # (auto) 0.03 K/uL (0-0.2); Basophils % (auto) 0.3 %; Eosinophils # (auto) 0.39 K/uL (0-0.5); Eosinophils % (auto) 3.5 %; Hematocrit (blood only) 32.6 % (42-52); Hemoglobin 11.2 g/dL (14.0-18.0); Immature Granulocytes # (auto) 0.03 K/uL (0.00-0.02); Immature Granulocytes % (auto) 0.3 %; Lymphocytes # (auto) 1.74 K/uL (1.2-3.4); Lymphocytes % (auto) 15.5 %; Mean Corpuscular Hgb Conc 34.4 g/dL (32-36); Mean Corpuscular Volume 87.9 fL (80-100); Monocytes # (auto) 1.39 K/uL (0.11-0.59); Monocytes % (auto) 12.4 %; Neutrophils # (auto) 7.63 K/uL (1.4-6.5); Platelet Count 136 K/uL (130-400); RDW Coefficient of Variation 13.9 % (11.5-14.5); RDW Standard Deviation 44.9 fL (36.4-46.3); Red Blood Count 3.71 M/uL (4.7-6.1); White Blood Count 11.21 K/uL (4.8-10.8)
[2018-11-01 07:22] LABS: Albumin Level 3.1 gm/dl (3.4-5.0); BUN Creatinine Ratio 16.2 (10-20); Calcium 8.5 mg/dl (8.5-10.1); Creatinine Clr Calc Pharmacy 62.3 ml/min; Est GFR (African American) 75.4; Est GFR (Non-African American) 65.1
[2018-11-01 07:25] LABS: Albumin Globulin Ratio 0.8 (0.9-2); Bilirubin,Total 0.7 mg/dl (0.2-1); Globulin 3.8 gm/dl (2.5-4.0); Total Protein 6.9 gm/dl (6.4-8.2)
--- NOTE | 2018-11-01 08:18 | Hospitalist Progress Note ---
Date of Service November 01, 2018 Assessment & Plan (1) Spinal stenosis, lumbar region with neurogenic claudication: Pre-op diagnosis of Spinal stenosis, lumbar region with neurogenic claudication L3-S1 Operation Date: 10/29/18 for Lumber spin surgery for decompression of spinal cord (#1 lumbar decompression medial facetectomies foraminotomies L2-3 L3-4 L4-5. #2 posterior spinal fusion L3-4 L4-5 L5-S1. #3 please posterior segmental instrumentation using globus L3-4 L4-5 L5-S1. #4 interbody fusion L4-5 per #5 placement of peek cage 11 x 26 mm L4-5. #6 placement of local autograft in the posterior lateral gutters per #7 placement Feese collagen sponge, master graft in the posterior lateral gutters and ostial amp in the interbody space) -on pain medications -daily Miralax at least until first bowel movement after the surgery Acute blood loss anemia -pre-op Hgb is 13.7 in September 2018 - Estimated Blood Loss 575 cc in the operating room on 10/29/18 - FLAVIO drain draining serosanguinous fluid - Hgb on 11.8 on 10/30/18; Hgb 10.7 on 10/31/18; Hgb 11.2 on 11/01/18 - No indication for blood transfusion at this time - management of FLAVIO drain as per orthopedics Fever -Patient was febrile on 10/31/18 with max temperature of 38.5. Medicine hospitalist consult was notified and patient was ordered acetaminophen, blood cultures were drawn, and IV Zosyn was started empirically. Patient since has been afebrile and on IV Zosyn this AM. Blood cultures are still pending. Have discussed with patient that hospitalist medicine would recommend that patient remain in the hospital on IV Zosyn until blood cultures return. Have advised patient to discuss with primary medical team which is orthopedics. -Urine analysis also ordered (2) CAD (coronary artery disease): -History of CABG x2 2013 -Received preoperative cardiac clearance -Stable, no reports of chest pain -Continue aspirin, statin, beta-padmini -continue to hold ED inhibitor until blood pressure improves (3) HTN (hypertension): History of hypertension -takes rampril 10 mg daily at home with metoprolol -blood pressure currently is controlled without ED inhibitor -continue metoprolol -hold ED inhibitor (4) Ischemic cardiomyopathy: -Echo 4/25/18 showed educed EF at 30-35%; stress echo 08/01/18 showed EF of 51% -Appears euvolemic, does not require routine diuretics (5) Pacemaker: presence of pacemaker (6) Complete heart block: history of complete heart block; has pacemaker no acute issues at this time (7) DVT prophylaxis: -Teds/SCDs as per spine orthopedics Subjective Patient was febrile on 10/31/18 with max temperature of 38.5. Medicine hospitalist consult was notified and patient was ordered acetaminophen, blood cultures were drawn, and IV Zosyn was started empirically. Patient since has been afebrile and on IV Zosyn this AM. Blood cultures are still pending. Have discussed with patient that hospitalist medicine would recommend that patient remain in the hospital on IV Zosyn until blood cultures return. Have advised patient to discuss with primary medical team which is orthopedics. Patient reports that the back pain is tolerable. Continues to have the FLAVIO drain with serosanguinous fluid. Patient made urine into urinal Patient denies chest pain, abdomen pain, or problems with breathing. No headache. No dizziness Physical Exam Constitutional: WD/WN, vitals as above Eyes: PERRL, conjunctivae normal, anicteric sclerae EOM intact bilaterally ENMT: external ear and nose normal, oropharynx normal Neck: trachea midline, no thyromegaly Respiratory: normal respiratory effort, lungs clear to auscultation Cardiovascular: Rate/Rhythm: regular rate and regular rhythm Gastrointestinal (Abdomen): normal bowel sounds, soft, nontender, no hepatosplenomegaly Musculoskeletal: no cyanosis or clubbing, extremities motor strength 5/5 Head/Neck/Chest: normocephalic and head atraumatic Neurologic: PERRL, EOMI, accommodation nl, no face palsy, no dysarthria CN's II-XI intact bilaterally Psychiatric: A+Ox3, euthymic affect Results & Data Vital Signs (Past 12 Hours) Vital Signs Temp Pulse Resp BP Pulse Ox 11/01/18 07:38 36.7 C 91 H 18 118/75 93 10/31/18 23:03 37.3 C 87 14 122/71 95
[2018-11-01] MEDS: ASPIRIN 81 MG ECTAB PO SCH (08:41)
[2018-11-01] MEDS: DOCUSATE SODIUM 100 MG CAP PO SCH ×2 (08:41→20:27)
[2018-11-01] MEDS: POLYETHYLENE (MIRALAX) 17 GM PACK PO SCH (08:41)
[2018-11-01] MEDS: SENNA 8.6 MG TAB PO SCH (08:42)
[2018-11-01] MEDS: GABAPENTIN 400 MG CAP PO SCH ×3 (08:42→20:29)
[2018-11-01] MEDS: PANTOprazole 40 MG TAB PO SCH (08:42)
[2018-11-01] MEDS: METOPROLOL SUCC 50MG EXT REL TAB PO SCH (08:45)
[2018-11-01 09:34] LABS: Appearance Urine Clear (Clear); Bilirubin Urine Negative (Negative); Blood Urine Negative (Negative); Color Urine Yellow; Glucose Urine UA Negative (Negative); Ketones Urine Negative (Negative); Leukocyte Esterase Urine Negative (Negative); Nitrite Urine Negative (Negative); Protein Urine Negative (Negative); Specific Gravity Urine 1.021 (1.000-1.030); Urobilinogen Urine Negative (Negative)
--- NOTE | 2018-11-01 11:14 | Orthopedic Progress Note ---
Date of Service November 01, 2018 Assessment & Plan (1) Spinal stenosis, lumbar region with neurogenic claudication: This time we will wait another 24 hours to monitor the cultures. If he continues to improve medically will anticipate discharge home tomorrow. Present on Admission?: Yes Subjective Patient's back pain is controlled. Leg symptoms steadily improved. He did have a temperature last evening. And cultures were obtained. Physical Exam Physical Exam: On exam he is in the chair at the bedside. Is good strength testing. Results & Data Vital Signs (Past 12 Hours) Vital Signs Temp Pulse Resp BP Pulse Ox 11/01/18 08:45 96 H 120/75 11/01/18 07:38 36.7 C 91 H 18 118/75 93
[2018-11-01] MEDS: MAGNESIUM HYDROXIDE SUSP 30 ML UDC PO PRN (17:06)
[2018-11-01] MEDS: TRAMADOL HCL 50 MG TABLET PO PRN (19:00)
[2018-11-01] MEDS ORDERED: MAGNESIUM CITRATE 296 ML/BTL PO PRN (19:23)
[2018-11-01] MEDS: ROSUVASTATIN CALCIUM 5 MG TAB PO SCH (20:28)
[2018-11-01] MEDS: TAMSULOSIN HCL 0.4 MG CAP PO SCH (20:29)
[2018-11-02] MEDS: OXYCODONE HCL IR 5 MG TAB (IMMEDIATE RELEASE) PO PRN ×5 (02:25→23:59)
[2018-11-02] MEDS: PIPERACILLIN/TAZOBACTAM 3.375 GM in DEXTROSE 5% 100 ML IV SCH (05:56)
[2018-11-02 06:26] LABS: Creatinine Clr Calc Pharmacy 61.2 ml/min; Est GFR (African American) 73.8; Est GFR (Non-African American) 63.7
[2018-11-02] MEDS ORDERED: FUROSEMIDE 40 MG/4 ML VIAL IV STA (08:00)
--- NOTE | 2018-11-02 08:12 | Hospitalist Progress Note ---
Date of Service November 02, 2018 Assessment & Plan (1) Spinal stenosis, lumbar region with neurogenic claudication: Pre-op diagnosis of Spinal stenosis, lumbar region with neurogenic claudication L3-S1 Operation Date: 10/29/18 for Lumber spin surgery for decompression of spinal cord (#1 lumbar decompression medial facetectomies foraminotomies L2-3 L3-4 L4-5. #2 posterior spinal fusion L3-4 L4-5 L5-S1. #3 please posterior segmental instrumentation using globus L3-4 L4-5 L5-S1. #4 interbody fusion L4-5 per #5 placement of peek cage 11 x 26 mm L4-5. #6 placement of local autograft in the posterior lateral gutters per #7 placement Feese collagen sponge, master graft in the posterior lateral gutters and ostial amp in the interbody space) -on pain medications -Miralax prn Acute blood loss anemia -pre-op Hgb is 13.7 in September 2018 - Estimated Blood Loss 575 cc in the operating room on 10/29/18 - FLAVIO drain draining serosanguinous fluid - Hgb on 11.8 on 10/30/18; Hgb 10.7 on 10/31/18; Hgb 11.2 on 11/01/18 - No indication for blood transfusion at this time - FLAVIO drain has been removed on 11/01/18 as per nurse Fever -Patient was febrile on 10/31/18 with max temperature of 38.5. Medicine hospitalist consult was notified and patient was ordered acetaminophen, blood cultures were drawn, and IV Zosyn was started empirically -Urine analysis is normal from 11/01/18 -Patient's 10/31/18 blood cultures returned as no growth to date on 11/02/18 and Zosyn is to be stopped (2) CAD (coronary artery disease): -History of CABG x2 2013 -Received preoperative cardiac clearance -Stable, no reports of chest pain -Continue aspirin, statin, beta-padmini -continue to hold ED inhibitor for now (3) HTN (hypertension): History of hypertension -takes rampril 10 mg daily at home with metoprolol -blood pressure currently is controlled without ED inhibitor -continue metoprolol -hold ED inhibitor (4) Ischemic cardiomyopathy: -Echo 10/23/17 showed educed EF at 30-35%; stress echo 08/01/18 showed EF of 51% Bilateral Lower extremity swelling -5/5/19 Patient reports more leg swelling. He has bilateral pedal edema and the right calf appeared very tight. Patient declined ultrasound of lower extremities. Internal Medicine doctor offered to start Furosemide (Lasix) in case lower extremity swelling is from venous stasis. 40 mg IV Lasix ordered. recommended to orthopedic physician hospital aides and assistants teacher to keep patient in the hospital for diuretics and further monitoring of the leg edema -given that patient does not have respiratory symptoms, do not believe that the swelling is from a CHF exacerbation (5) Pacemaker: presence of pacemaker (6) Complete heart block: history of complete heart block; has pacemaker no acute issues at this time (7) DVT prophylaxis: -Teds/SCDs as per spine orthopedics Subjective Patient's blood culture from 10/31/18 have no growth to date and patient is afebrile. He reports he was able to make bowel movement yesterday. he was seen ambulating with walker from bathroom to chair. Patient reports more leg swelling. He has bilateral pedal edema and the right calf appeared very tight. Patient declined ultrasound of lower extremities. Internal Medicine doctor offered to start Furosemide (Lasix) in case lower extremity swelling is from venous stasis. Patient agreed. Patient more concerned about getting pain medications. Patient reports full code status. Patient denies chest pain or abdomen pain. The FLAVIO drain in the back was removed yesterday as per nurse Physical Exam Constitutional: WD/WN, vitals as above Eyes: PERRL, conjunctivae normal, anicteric sclerae EOM intact bilaterally ENMT: external ear and nose normal, oropharynx normal Neck: trachea midline, no thyromegaly Respiratory: normal respiratory effort, lungs clear to auscultation Cardiovascular: Rate/Rhythm: regular rate and regular rhythm Gastrointestinal (Abdomen): normal bowel sounds, soft, nontender, no hepatosplenomegaly Musculoskeletal: Head/Neck/Chest: normocephalic and head atraumatic bilateral lower extremity edema Neurologic: PERRL, EOMI, accommodation nl, no face palsy, no dysarthria CN's II-XI intact bilaterally Psychiatric: A+Ox3, euthymic affect Genitourinary: + penis abnormality (mcduffie) Results & Data Vital Signs (Past 12 Hours) Vital Signs Temp Pulse Resp BP Pulse Ox 11/01/18 23:24 37.1 C 92 H 17 121/75 92
[2018-11-02] MEDS: DOCUSATE SODIUM 100 MG CAP PO SCH ×2 (08:15→21:58)
[2018-11-02] MEDS ORDERED: FUROSEMIDE 40 MG in SYRINGE 0 ML IV ONE (08:15)
[2018-11-02] MEDS: GABAPENTIN 400 MG CAP PO SCH ×3 (08:15→21:58)
[2018-11-02] MEDS: SENNA 8.6 MG TAB PO SCH (08:15)
[2018-11-02] MEDS: ASPIRIN 81 MG ECTAB PO SCH (08:15)
[2018-11-02] MEDS: PANTOprazole 40 MG TAB PO SCH (08:16)
[2018-11-02] MEDS: METOPROLOL SUCC 50MG EXT REL TAB PO SCH (08:16)
[2018-11-02] MEDS: POLYETHYLENE (MIRALAX) 17 GM PACK PO SCH (08:17)
--- NOTE | 2018-11-02 09:12 | Orthopedic Progress Note ---
Date of Service November 02, 2018 Assessment & Plan (1) Spinal stenosis, lumbar region with neurogenic claudication: At this point will wait for his Lasix to start working to help relieve some of the swelling in his legs. Medicine like to keep him today during that process to monitor his electrolytes. We will hold off on discharge at this point but will likely let him go tomorrow if everything goes well. In the interim we will continue GI DVT prophylaxis and pain control. Subjective Patient is postoperative day #4. He complains of swelling in his legs and tenderness in the legs themselves. He has been seen by medicine and was just placed on Lasix which was ordered but not yet given. His pain is moderately controlled and is asking for pain medications today. He is not complaining of any abdominal pain. He has been passing gas. He denies any other numbness, tingling, or paresthesias. Physical Exam Physical Exam: On exam he is alert and oriented. He has some tenderness to palpation in his legs generally but no shannan calf tenderness. He does have pitting edema in both lower extremities from the mid tibia down. Sensation is intact to light touch. His abdomen soft and nontender. Dressing is clean dry and intact. Results & Data Vital Signs (Past 12 Hours) Vital Signs Temp Pulse Resp BP Pulse Ox 11/02/18 08:17 36.6 C 90 17 152/77 H 95 11/01/18 23:24 37.1 C 92 H 17 121/75 92
[2018-11-02] MEDS: TAMSULOSIN HCL 0.4 MG CAP PO SCH (21:58)
[2018-11-02] MEDS: ROSUVASTATIN CALCIUM 5 MG TAB PO SCH (21:58)
[2018-11-03] MEDS: HYDROmorphone INJ 0.5 MG/0.5 ML SYR IV PRN ×2 (03:47→20:10)
[2018-11-03 06:00] LABS: Basophils # (auto) 0.02 K/uL (0-0.2); Basophils % (auto) 0.2 %; Eosinophils # (auto) 0.22 K/uL (0-0.5); Eosinophils % (auto) 2.1 %; Hematocrit (blood only) 32.5 % (42-52); Hemoglobin 11.3 g/dL (14.0-18.0); Immature Granulocytes # (auto) 0.03 K/uL (0.00-0.02); Immature Granulocytes % (auto) 0.3 %; Lymphocytes # (auto) 1.24 K/uL (1.2-3.4); Lymphocytes % (auto) 12.1 %; Mean Corpuscular Hgb Conc 34.8 g/dL (32-36); Mean Corpuscular Volume 86.4 fL (80-100); Mean Platelet Volume 9.1 fL (7.4-10.4); Monocytes # (auto) 1.93 K/uL (0.11-0.59); Monocytes % (auto) 18.8 %; Neutrophils # (auto) 6.84 K/uL (1.4-6.5); Neutrophils % (auto) 66.5 %; Platelet Count 186 K/uL (130-400); RDW Coefficient of Variation 13.4 % (11.5-14.5); RDW Standard Deviation 42.4 fL (36.4-46.3); Red Blood Count 3.76 M/uL (4.7-6.1); White Blood Count 10.28 K/uL (4.8-10.8)
[2018-11-03 06:39] LABS: Albumin Level 3.1 gm/dl (3.4-5.0); BUN Creatinine Ratio 18.8 (10-20); Calcium 8.8 mg/dl (8.5-10.1); Creatinine Clr Calc Pharmacy 59.6 ml/min; Est GFR (African American) 71.5; Est GFR (Non-African American) 61.7; Magnesium 2.5 mg/dl (1.8-2.4); Potassium 3.7 mmol/L (3.5-5.1)
[2018-11-03 06:46] LABS: Albumin Globulin Ratio 0.7 (0.9-2); Bilirubin,Total 0.8 mg/dl (0.2-1); Globulin 4.2 gm/dl (2.5-4.0); Total Protein 7.3 gm/dl (6.4-8.2)
[2018-11-03] MEDS ORDERED: MAGNESIUM HYDROXIDE SUSP 30 ML UDC PO ONE (08:04)
--- NOTE | 2018-11-03 08:04 | Hospitalist Progress Note ---
Date of Service November 03, 2018 Assessment & Plan (1) Spinal stenosis, lumbar region with neurogenic claudication: Pre-op diagnosis of Spinal stenosis, lumbar region with neurogenic claudication L3-S1 Operation Date: 10/29/18 for Lumber spin surgery for decompression of spinal cord (#1 lumbar decompression medial facetectomies foraminotomies L2-3 L3-4 L4-5. #2 posterior spinal fusion L3-4 L4-5 L5-S1. #3 please posterior segmental instrumentation using globus L3-4 L4-5 L5-S1. #4 interbody fusion L4-5 per #5 placement of peek cage 11 x 26 mm L4-5. #6 placement of local autograft in the posterior lateral gutters per #7 placement Feese collagen sponge, master graft in the posterior lateral gutters and ostial amp in the interbody space) -on pain medications including narcotics and gabapentin TID -bowel regimen: Miralax and senna - patient also only reported 1 bowel movement since the surgery while being on bowel regimen. Milk of Magnesia x 1 ordered Acute blood loss anemia -pre-op Hgb is 13.7 in September 2018 - Estimated Blood Loss 575 cc in the operating room on 10/29/18 - FLAVIO drain draining serosanguinous fluid - Hgb on 11.8 on 10/30/18; Hgb 10.7 on 10/31/18; Hgb 11.2 on 11/01/18 - No indication for blood transfusion at this time - FLAVIO drain has been removed on 11/01/18 as per nurse Fever -Patient was febrile on 10/31/18 with max temperature of 38.5. Medicine hospitalist consult was notified and patient was ordered acetaminophen, blood cultures were drawn, and IV Zosyn was started empirically -Urine analysis is normal from 11/01/18 -Patient's 10/31/18 blood cultures returned as no growth to date on 11/02/18 and Zosyn is to be stopped (2) CAD (coronary artery disease): -History of CABG x2 2013 -Received preoperative cardiac clearance -Stable, no reports of chest pain -Continue aspirin, statin, beta-padmini -continue to hold ED inhibitor for now while on Lasix (3) HTN (hypertension): History of hypertension -takes rampril 10 mg daily at home with metoprolol -blood pressure currently is controlled without ED inhibitor -continue metoprolol -hold ED inhibitor while on Lasix (4) Ischemic cardiomyopathy: -Echo 10/23/17 showed educed EF at 30-35%; stress echo 08/01/18 showed EF of 51% Bilateral Lower extremity swelling -11/02/18 Patient reports more leg swelling. He has bilateral pedal edema and the right calf appeared very tight. Patient declined ultrasound of lower extremities. Internal Medicine doctor offered to start Furosemide (Lasix) in case lower extremity swelling is from venous stasis. 40 mg IV Lasix ordered. recommended to orthopedic physician veterinarian assistant to keep patient in the hospital for diuretics and further monitoring of the leg edema -given that patient does not have respiratory symptoms, do not believe that the swelling is from a CHF exacerbation -11/03/18 Patient continues to have bilateral lower extremity pedal edema. The right calf is still more swollen than the left. But less tight after the Lasix from 11/02/18. Patient denies shortness of breath or chest pain and again declines the ultrasound of the lower extremities. Will order again lasix 40 mg x 1 on 11/03/[address] patient on Lasix 20 mg daily which can start on 11/04/18 and recommend that when laying flat the patient should keep the legs elevated and that patient should be on Lasix 20 mg daily until follow up with primary care doctor whenever the hospital discharge date is by orthopedics (5) Pacemaker: presence of pacemaker (6) Complete heart block: history of complete heart block; has pacemaker no acute issues at this time (7) DVT prophylaxis: -Teds/SCDs as per spine orthopedics Subjective Patient continues to have bilateral lower extremity pedal edema. The right calf is still more swollen than the left. But less tight after the Lasix from 11/02/18. Patient denies shortness of breath or chest pain and again declines the ultrasound of the lower extremities. Will order again lasix 40 mg x 1 on 11/03/[address] patient on Lasix 20 mg daily which can start on 11/04/18 and recommend that when laying flat the patient should keep the legs elevated and that patient should be on Lasix 20 mg daily until follow up with primary care doctor whenever the hospital discharge date is by orthopedics patient also only reported 1 bowel movement since the surgery while being on bowel regimen. Milk of Magnesia x 1 ordered. no vomiting, abdomen pain, no fever Physical Exam Constitutional: WD/WN, vitals as above Eyes: PERRL, conjunctivae normal, anicteric sclerae EOM intact bilaterally ENMT: external ear and nose normal, oropharynx normal Neck: trachea midline, no thyromegaly Respiratory: normal respiratory effort, lungs clear to auscultation Cardiovascular: Rate/Rhythm: regular rate and regular rhythm Gastrointestinal (Abdomen): normal bowel sounds, soft, nontender, no hepatosplenomegaly Musculoskeletal: no cyanosis or clubbing, extremities motor strength 5/5 Head/Neck/Chest: normocephalic and head atraumatic Extremities: + lower extremity abnormal to inspection (bilateral pedal edema, right calf swelling) Neurologic: PERRL, EOMI, accommodation nl, no face palsy, no dysarthria CN's II-XI intact bilaterally Psychiatric: A+Ox3, euthymic affect Results & Data Vital Signs (Past 12 Hours) Vital Signs Temp Pulse Pulse Pulse Resp BP BP 11/03/18 07:40 37 C 88 16 130/76 11/02/18 23:50 37.5 C 85 11/02/18 23:35 37.7 C H 110 H 18 119/71 Pulse Ox 11/03/18 07:40 95 11/02/18 23:50 11/02/18 23:35 95
[2018-11-03] MEDS ORDERED: FUROSEMIDE 40 MG in SYRINGE 0 ML IV ONE (08:15)
[2018-11-03] MEDS: SENNA 8.6 MG TAB PO SCH (08:36)
[2018-11-03] MEDS: ASPIRIN 81 MG ECTAB PO SCH (08:36)
[2018-11-03] MEDS: GABAPENTIN 400 MG CAP PO SCH ×3 (08:36→20:15)
[2018-11-03] MEDS: METOPROLOL SUCC 50MG EXT REL TAB PO SCH (08:36)
[2018-11-03] MEDS: DOCUSATE SODIUM 100 MG CAP PO SCH ×2 (08:36→20:17)
[2018-11-03] MEDS: OXYCODONE HCL IR 5 MG TAB (IMMEDIATE RELEASE) PO PRN ×3 (08:37→23:28)
[2018-11-03] MEDS: POLYETHYLENE (MIRALAX) 17 GM PACK PO SCH (09:19)
--- NOTE | 2018-11-03 14:34 | Discharge Summary ---
Date of Service November 03, 2018 Admission HPI Per Admitting Provider This is a 73-year-old male who presents with chronic persistent back and bilateral leg pain. After failing extensive course of nonoperative care he is here for surgical intervention. Principal Diagnosis Lumbar spinal stenosis Discharge Data Allergies Allergy/AdvReac Type Severity Reaction Status Date / Time No Known Allergies Allergy Verified 10/29/18 08:27 Consultations 10/29/18 15:37 Consult Case Management - Discharge Planning Routine Consult Hospitalist Routine Procedures Performed Operation Date: 10/29/18 09:35 Actual Procedures p L3-S1 Decompression and Fusion, Instrumentation, Interbody Cage L4-L5 with application of Bone Morphogenetic Protein, and OsteoAMP allograft, Spinal Cord Monitoring(Not Applicable) - Jaspreet Corona DO Ordered Studies 10/29/18 07:00 FL fluoroscopy <1hr Routine FL lumbar spine 2-3V Routine Hospital Course (1) Spinal stenosis, lumbar region with neurogenic claudication: She underwent multilevel lumbar decompression fusion tolerated as well as to orthopedic for postoperative. He did initiate physical therapy postop day #1 and progressed probably throughout the weekend FLAVIO drain decreasing appropriately. Pain difficult to control secondary to his preoperative narcotic utilization but nevertheless adequate. Subsequently discharged home. Discharge orders and instructions found chart Total Time Total Time Spent Total Time Spent (In Minutes): 20 minutes Discharge Plan Discharge Items Patient Disposition: Home - Self-Care Reason For Visit: LUMBAR SPINAL STENOSIS W/NEUROGENIC CLAUDICATION Discharge Diagnosis: lumbar spinal stenosis Discharge Goals: Decrease discomfort Activity: Per 'Additional Instructions' section Non-emergency contact: Primary Care Provider Call non-emergency contact if: you have any medication questions Follow-up/Referrals: aNny Alcantar MD [Primary Care Provider] - Diet: Regular Addtl Provider Instructions: ACTIVITY RECOMMENDATIONS: SELF CARE INSTRUCTIONS AFTER THORACIC/LUMBAR FUSIONS 1. You may walk to your tolerance. It is good exercise for your legs and back. Expect some back and intermittent leg aches and pains. 2. You may perform "counter-top" level activities (make a sandwich, yovana with a project, etc.). 3. No bending or lifting of more than 10 pounds or back twisting of any nature (roll like a log when turning in bed). 4. You may ride in a car for 20-30 minutes at a time. No driving until after your first visit with your doctor. 5. Frequent changes of position and restricting sitting to 30 minutes at a time will help limit the amount of back spasms and stiffness you may experience. 6. You may discontinue the use of ambulatory aids (cane, crutches, etc.) once your strength and confidence allow. 7. You may rotary rig engine operator the shower and let water strike your incision when you arrive home at least once daily. Do not take a tub bath, sit in a hot tub or go into a swimming pool until after your first recheck in the office. SPECIAL CARE INSTRUCTIONS: VERY IMPORTANT TO READ AND REVIEW A. Your surgical incision has been closed with a cosmetic suture under the skin that will dissolve in about 6 weeks. In 14 days, you can use a pair of clean scissors and cut the suture that is left outside of the skin at the ends of your incision. 1. The small skin tapes can be removed 7 days after surgery if they have not fallen off by that point. 2. You may keep the wound open to air as much as possible to promote healing after post-op day number 5 unless told otherwise by your doctor. 3. If you think the wound looks like it is becoming infected (redness or worsening drainage) and/or you are experiencing fever, chill or worsening back pain and muscle spasms, contact the office so that we may evaluate you as soon as possible. B. Complications are uncommon, but please contact us if you have any signs or symptoms of: 1. wound infection (fever higher than 102.5 degrees F, redness, separation of wound, drainage, or increasing pain from the incision) 2. blood clots in legs (pain, swelling, redness and warmth in legs) 3. urinary tract infection (fever higher than 102.5 degrees F, burning upon urination or increased frequency of urination) 4. nerve problems (inability to walk on your toes or heels, numbness, loss of bowel or bladder control) 5. any other symptoms that concern you C. Please call the office at if you have any concerns or questions about your operation or recovery. D. No smoking! Smoking drastically decreases the chance of a solid fusion. E. Do not take any anti-inflammatory medications (Indocin, Advil, Motrin, Aspirin, Naprosyn, etc.) as these may inhibit the chance of a solid fusion. Tylenol is okay to take for pain. MANAGING PAIN AFTER SPINAL SURGERY 1. Narcotic medication is intended for short-term use and will be provided for surgical pain. Surgical pain usually lasts for a period of 4-6 weeks. Narcotic medication includes Percocet, Vicodin, Darvocet, Tylenol #3 or Lortab. 2. Longer-term pain is more appropriately treated with non-narcotic medication such as Tylenol ES. 3. Muscle spasm is not appropriately treated with narcotics. Muscle relaxers such as Soma, Flexeril or Skelaxin can be used along with Tylenol ES. 4. Remember that we all live with some "aches and pains". This is not unusual or uncommon after an injury or as we get older. a. Back pain is expected and may include muscle spasms for 4 to 6 weeks after surgery. The pain should gradually improve. If the pain worsens for no apparent reason, please contact the office. b. Intermittent leg pain may also be experienced and should not be concerned about unless it worsens for no apparent reason. If so, please contact the office. 5. We will provide appropriate medication within the normal guidelines of their prescribed use. We will also be very cautious and aware of potential abuse and extended duration of patients' medication needs. a. Pain medications are for your comfort and to assist with sleep and rest so that the tissue can heal. They are not provided in order to return to normal activity and should not be used through the day. To do so or worsening pain at night can result from ongoing tissue damage and development of tolerance to the prescribed medicine. 6. Please allow 2-3 days to process refills. Prescriptions will not be mailed but must be picked up at the office. FOLLOW UP VISIT: Keep your scheduled follow-up appointment. Any questions, please call the office at . Prescriptions: New furosemide 20 mg Tablet 20 mg PO QAM Qty: 20 RF: 0 oxycodone 5 mg Tablet 15 mg PO Q6H PRN (Reason: Pain) Qty: 20 RF: 0 Continued metoprolol succinate 50 mg Tablet Extended Release 24 Hr 1 tab PO DAILY RF: 0 aspirin 81 mg Tablet,Delayed Release (Dr/Ec) 81 mg PO DAILY RF: 0 tamsulosin 0.4 mg Capsule 0.4 mg PO HS RF: 0 nitroglycerin 0.4 mg Tablet, Sublingual 1 dose sublingual UD PRN (Reason: Chest Pain) RF: 0 ramipril 10 mg Capsule 10 mg PO DAILY RF: 0 rosuvastatin 5 mg Tablet 0.5 tab PO HS RF: 0 oxycodone 15 mg Tablet 15 mg PO Q6H PRN (Reason: Pain) RF: 0 cholecalciferol (vitamin D3) [Vitamin D3] 2,000 unit Tablet 2,000 unit PO DAILY RF: 0 naproxen sodium [Aleve] 220 mg Capsule 220 mg PO Q8H PRN (Reason: Pain) RF: 0 No Action gabapentin 300 mg Capsule 900 mg PO TID RF: 0 Stand-Alone Forms: [facility] Discharge Orders: Discharge Order (Routine); Ordered 11/03/18 Ordered By: Jaspreet Corona Admission Data Admit Date/Time: 10/29/18 13:06 Attending Provider: Jaspreet Corona Admit Provider: Jaspreet Corona Primary Care Provider: Nany Alcantar Other Providers: Peter Valenzuela Service: Surgical Services Other Interventions: Discharge Summary Assessment (RN) Last Done: 11/03/18 10:48
[2018-11-03] MEDS: TAMSULOSIN HCL 0.4 MG CAP PO SCH (20:17)
[2018-11-03] MEDS: ROSUVASTATIN CALCIUM 5 MG TAB PO SCH (20:18)
[2018-11-04] MEDS: OXYCODONE HCL IR 5 MG TAB (IMMEDIATE RELEASE) PO PRN ×2 (05:16→11:26)
[2018-11-04] MEDS: MAGNESIUM HYDROXIDE SUSP 30 ML UDC PO PRN (08:54)
[2018-11-04] MEDS: GABAPENTIN 400 MG CAP PO SCH (08:55)
[2018-11-04] MEDS: ASPIRIN 81 MG ECTAB PO SCH (08:55)
[2018-11-04] MEDS: DOCUSATE SODIUM 100 MG CAP PO SCH (08:55)
[2018-11-04] MEDS: SENNA 8.6 MG TAB PO SCH (08:55)
[2018-11-04] MEDS: METOPROLOL SUCC 50MG EXT REL TAB PO SCH (08:55)
[2018-11-04] MEDS: POLYETHYLENE (MIRALAX) 17 GM PACK PO SCH (08:56)
[2018-11-04] MEDS ORDERED: FUROSEMIDE 20 MG TAB PO SCH (09:00)
--- NOTE | 2018-11-04 10:30 | Hospitalist Progress Note ---
Date of Service November 04, 2018 Assessment & Plan (1) Spinal stenosis, lumbar region with neurogenic claudication: Pre-op diagnosis of Spinal stenosis, lumbar region with neurogenic claudication L3-S1 Operation Date: 10/29/18 for Lumber spin surgery for decompression of spinal cord (#1 lumbar decompression medial facetectomies foraminotomies L2-3 L3-4 L4-5. #2 posterior spinal fusion L3-4 L4-5 L5-S1. #3 please posterior segmental instrumentation using globus L3-4 L4-5 L5-S1. #4 interbody fusion L4-5 per #5 placement of peek cage 11 x 26 mm L4-5. #6 placement of local autograft in the posterior lateral gutters per #7 placement Feese collagen sponge, master graft in the posterior lateral gutters and ostial amp in the interbody space) -on pain medications including narcotics and gabapentin TID -bowel regimen:discharge prescriptions made for senna and colace Acute blood loss anemia -pre-op Hgb is 13.7 in September 2018 - Estimated Blood Loss 575 cc in the operating room on 10/29/18 - FLAVIO drain draining serosanguinous fluid - Hgb on 11.8 on 10/30/18; Hgb 10.7 on 10/31/18; Hgb 11.2 on 11/01/18 - No indication for blood transfusion at this time - FLAVIO drain has been removed on 11/01/18 as per nurse Fever -Patient was febrile on 10/31/18 with max temperature of 38.5. Medicine hospitalist consult was notified and patient was ordered acetaminophen, blood cultures were drawn, and IV Zosyn was started empirically -Urine analysis is normal from 11/01/18 -Patient's 10/31/18 blood cultures returned as no growth to date on 11/02/18 and Zosyn is stopped (2) CAD (coronary artery disease): -History of CABG x2 2013 -Received preoperative cardiac clearance -Stable, no reports of chest pain -Continue aspirin, statin, beta-padmini -can resume ED inhibitor while on Lasix (3) HTN (hypertension): History of hypertension -takes rampril 10 mg daily at home with metoprolol -blood pressure currently is controlled without ED inhibitor -continue metoprolol -can resume ED inhibitor while on Lasix (4) Ischemic cardiomyopathy: -Echo 10/23/17 showed educed EF at 30-35%; stress echo 08/01/18 showed EF of 51% Bilateral Lower extremity swelling -11/02/18 Patient reports more leg swelling. He has bilateral pedal edema and the right calf appeared very tight. Patient declined ultrasound of lower extremities. Internal Medicine doctor offered to start Furosemide (Lasix) in case lower extremity swelling is from venous stasis. 40 mg IV Lasix ordered. recommended to orthopedic physician assistant family teacher to keep patient in the hospital for diuretics and further monitoring of the leg edema -given that patient does not have respiratory symptoms, do not believe that the swelling is from a CHF exacerbation -11/03/18 Patient continues to have bilateral lower extremity pedal edema. The right calf is still more swollen than the left. But less tight after the Lasix from 11/02/18. Patient denies shortness of breath or chest pain and again declines the ultrasound of the lower extremities. Will order again lasix 40 mg x 1 on 11/03/[address] patient on Lasix 20 mg daily which can start on 11/04/18 and recommend that when laying flat the patient should keep the legs elevated and that patient should be on Lasix 20 mg daily until follow up with primary care doctor -11/04/18 bilateral pedal edema with calf swelling somewhat better. continue Lasix as 20 mg daily (5) Pacemaker: presence of pacemaker (6) Complete heart block: history of complete heart block; has pacemaker no acute issues at this time (7) DVT prophylaxis: -Teds/SCDs as per spine orthopedics dealer relationship manager has arranged the physical rehabilitation [facility] service will sign off as patient is to be discharged by orthopedic service Subjective Patient reports he is passing gas. denies chest pain. denies abdomen pain. bilateral pedal edema with calf swelling somewhat better. denies chest pain. denies lightheadedness. denies headache dealer relationship manager has arranged the physical rehabilitation [facility] service will sign off as patient is to be discharged by orthopedic service Physical Exam Constitutional: WD/WN, vitals as above Eyes: PERRL, conjunctivae normal, anicteric sclerae EOM intact bilaterally ENMT: external ear and nose normal, oropharynx normal Neck: trachea midline, no thyromegaly Respiratory: normal respiratory effort, lungs clear to auscultation Cardiovascular: RRR, no murmur, no edema Gastrointestinal (Abdomen): normal bowel sounds, soft, nontender, no hepatosplenomegaly Musculoskeletal: Head/Neck/Chest: normocephalic and head atraumatic bilateral pedal edema with calf swelling somewhat better Neurologic: PERRL, EOMI, accommodation nl, no face palsy, no dysarthria CN's II-XI intact bilaterally Psychiatric: Orientation: alert and oriented x 3 Results & Data Vital Signs (Past 12 Hours) Vital Signs Temp Pulse Resp BP Pulse Ox 11/04/18 07:07 36.9 C 85 19 122/70 92 11/03/18 23:07 37.5 C 85 17 149/78 H 96
--- NOTE | 2018-11-04 14:24 | Orthopedic Progress Note ---
Date of Service November 04, 2018 Assessment & Plan (1) Spinal stenosis, lumbar region with neurogenic claudication: Patient will be discharged to skilled facility follow-up in office next few weeks. Present on Admission?: Yes Subjective Patient's back pain controlled leg symptoms improved. Physical Exam Physical Exam: Patient is neurologically intact appears comfortable. Results & Data Vital Signs (Past 12 Hours) Vital Signs Temp Pulse Resp BP Pulse Ox 11/04/18 07:07 36.9 C 85 19 122/70 92
== END 2018-11-04 11:48 | DRG 454 ==
LOC: ASU 07:50 → 3E 13:06